=== PATIENT | male | born 1965 | race African-American/Black ===

== ENCOUNTER 2023-03-20 14:52 | Inpatient (IN) | payer OTHER ==
[2023-03-20 15:31] VITALS: BMI 23.2
[2023-03-20] MEDS ORDERED: BENZONATATE 200 MG CAPSULE PO PRN (16:32)
[2023-03-20] MEDS ORDERED: guaiFENesin 600 MG TABLET.ER (FP) PO PRN (16:32)
[2023-03-20] MEDS ORDERED: POLYETHYLENE GLYCOL (HEALTHYLAX) 3350 17 GM PACKET PO PRN (16:32)
[2023-03-20] MEDS ORDERED: IBUPROFEN 400 MG TABLET (FP) PO PRN (16:32)
[2023-03-20] MEDS ORDERED: AMMONIUM LACTATE 12% LOTION 225 GM BOTTLE TP PRN (16:32)
[2023-03-20] MEDS ORDERED: COLLOIDAL OATMEAL 1 BAR EACH TP PRN (16:32)
[2023-03-20] MEDS ORDERED: NALOXONE HCL (KLOXXADO) 8 MG SPRAY NS PRN (16:32)
[2023-03-20] MEDS ORDERED: hydrOXYzine PAMOATE 25 MG CAPSULE (FP) PO PRN (16:32)
[2023-03-20] MEDS ORDERED: MAGNESIUM HYDROX 2400MG/30ML ORAL SUSPENSION 30 ML CUP PO PRN (16:32)
[2023-03-20] MEDS ORDERED: NICOTINE POLACRILEX 2 MG GUM BUC PRN (16:32)
[2023-03-20] MEDS ORDERED: NALOXONE HCL 0.4 MG/ML VIAL IM PRN (16:32)
[2023-03-20] MEDS ORDERED: BENZOCAINE/MENTHOL (CHLORASEPTIC ) LOZENGE MM PRN (16:32)
[2023-03-20] MEDS: THIAMINE HCL 100 MG TABLET (FP) PO SCH (21:22)
[2023-03-20] MEDS: BACLOFEN 10 MG TABLET (FP) PO PRN (21:22)
[2023-03-20] MEDS: BUDESONIDE/FORMETEROL FUMARATE 80/4.5 mcg INHALER IH SCH (21:23)
[2023-03-20] MEDS ORDERED: MELATONIN 5 MG TABLETS PO SCH (22:00)
[2023-03-20] MEDS ORDERED: traZODone HCL 100 MG TABLET (FP) PO ONE (22:00)
[2023-03-21] MEDS ORDERED: PATIENT'S OWN MEDICATION (NON-FORMULARY) (Losartan/Hydrochlorothiazide [Losartan-Hctz 100- PO SCH (10:00)
[2023-03-21] MEDS: PRENATAL VITAMINS W/ FOLIC ACID TABLET (FP) PO SCH (10:23)
[2023-03-21] MEDS: LOSARTAN POTASSIUM 50 MG TABLET PO SCH (10:23)
[2023-03-21] MEDS: HYDROCHLOROTHIAZIDE 12.5 MG CAPSULE (FP) PO SCH (10:23)
[2023-03-21] MEDS: BUDESONIDE/FORMETEROL FUMARATE 80/4.5 mcg INHALER IH SCH ×2 (10:24→21:01)
[2023-03-21] MEDS: NICOTINE 14 MG/24 HOURS TOPICAL PATCH TD SCH (10:25)
[2023-03-21 12:00] LABS: POTASSIUM 3.7 mmol/L (3.5-5.1)
[2023-03-21 12:05] LABS: HEMATOCRIT 35.2 % (35.4-49); HEMOGLOBIN 12.2 GM/dL (11.7-16.9); MCH 29.2 pg (25.7-33.7); MCHC 34.6 g/dl (32.0-35.9); MEAN CELL VOLUME 84.3 fl (80-96); MEAN PLT VOLUME 9.2 fl (7.5-11.1); PLATELET COUNT 253 10^3/uL (134-434); RBC 4.18 M/mm3 (4.00-5.60); RDW 13.9 % (11.9-15.9); WHITE BLOOD COUNT 8.6 K/mm3 (4.0-10.0)
[2023-03-21 12:16] LABS: BLOOD UREA NITROGEN 13.9 mg/dL (7-18)
[2023-03-21 12:20] LABS: CREATININE 0.7 mg/dL (0.55-1.3)
[2023-03-21 12:21] LABS: BILIRUBIN,TOTAL 0.3 mg/dL (0.2-1)
[2023-03-21 12:22] LABS: TOT PROT 6.3 g/dl (6.4-8.2)
[2023-03-21] MEDS: THIAMINE HCL 100 MG TABLET (FP) PO SCH (21:00)
[2023-03-21] MEDS: traZODone HCL 100 MG TABLET (FP) PO SCH (21:00)
[2023-03-21] MEDS: risperiDONE 2 MG TABLET PO SCH (21:01)
[2023-03-22] MEDS: LOPERAMIDE HCL 2 MG CAPSULE PO PRN ×3 (06:18→20:36)
[2023-03-22] MEDS: MAG HYDROX/AL HYDROX/SIMETH 30 ML UNIT-DOSE CUP PO PRN ×3 (06:20→21:26)
[2023-03-22] MEDS: BUDESONIDE/FORMETEROL FUMARATE 80/4.5 mcg INHALER IH SCH ×2 (09:42→21:25)
[2023-03-22] MEDS: PRENATAL VITAMINS W/ FOLIC ACID TABLET (FP) PO SCH (09:43)
[2023-03-22] MEDS: LOSARTAN POTASSIUM 50 MG TABLET PO SCH (09:43)
[2023-03-22] MEDS: HYDROCHLOROTHIAZIDE 12.5 MG CAPSULE (FP) PO SCH (09:43)
[2023-03-22] MEDS: NICOTINE 14 MG/24 HOURS TOPICAL PATCH TD SCH (09:44)
[2023-03-22] MEDS: BACLOFEN 10 MG TABLET (FP) PO PRN (09:46)
[2023-03-22] MEDS: ONDANSETRON *ODT* 4 MG TABLET SL PRN (17:06)
[2023-03-22 17:41] LABS: PH,URINE >= 9.0 (5.0-8.0); URINE APPEARANCE CLEAR; URINE BILIRUBIN NEGATIVE (NEGATIVE); URINE COLOR YELLOW; URINE GLUCOSE (UA) NEGATIVE (NEGATIVE); URINE KETONE NEGATIVE (NEGATIVE); URINE LEUK ESTERASE NEGATIVE (NEGATIVE); URINE NITRITE NEGATIVE (NEGATIVE); URINE PROTEIN NEGATIVE (NEGATIVE); URINE UROBILINOGEN 0.2 mg/dL (0.2-1.0)
[2023-03-22] MEDS: risperiDONE 2 MG TABLET PO SCH (21:25)
[2023-03-22] MEDS: traZODone HCL 100 MG TABLET (FP) PO SCH (21:25)
[2023-03-22] MEDS: THIAMINE HCL 100 MG TABLET (FP) PO SCH (21:26)
[2023-03-23] MEDS: LOPERAMIDE HCL 2 MG CAPSULE PO PRN (06:06)
[2023-03-23] MEDS: ONDANSETRON *ODT* 4 MG TABLET SL PRN (06:07)
[2023-03-23] MEDS: LOSARTAN POTASSIUM 50 MG TABLET PO SCH (10:19)
[2023-03-23] MEDS: BUDESONIDE/FORMETEROL FUMARATE 80/4.5 mcg INHALER IH SCH ×2 (10:19→21:29)
[2023-03-23] MEDS: HYDROCHLOROTHIAZIDE 12.5 MG CAPSULE (FP) PO SCH (10:19)
[2023-03-23] MEDS: PRENATAL VITAMINS W/ FOLIC ACID TABLET (FP) PO SCH (10:20)
[2023-03-23] MEDS: NICOTINE 14 MG/24 HOURS TOPICAL PATCH TD SCH (10:20)
[2023-03-23] MEDS: BACLOFEN 10 MG TABLET (FP) PO PRN ×2 (10:20→21:28)
[2023-03-23] MEDS: BISMUTH SUBSALICYLATE 262 MG/15 ML BTL PO PRN ×2 (11:08→21:29)
[2023-03-23] MEDS: THIAMINE HCL 100 MG TABLET (FP) PO SCH (21:28)
[2023-03-23] MEDS: traZODone HCL 100 MG TABLET (FP) PO SCH (21:28)
[2023-03-23] MEDS: risperiDONE 2 MG TABLET PO SCH (21:28)
[2023-03-24] MEDS: BISMUTH SUBSALICYLATE 262 MG/15 ML BTL PO PRN ×2 (06:31→21:51)
[2023-03-24] MEDS: NICOTINE 14 MG/24 HOURS TOPICAL PATCH TD SCH (09:31)
[2023-03-24] MEDS: PRENATAL VITAMINS W/ FOLIC ACID TABLET (FP) PO SCH (09:31)
[2023-03-24] MEDS: LOSARTAN POTASSIUM 50 MG TABLET PO SCH (09:32)
[2023-03-24] MEDS: BUDESONIDE/FORMETEROL FUMARATE 80/4.5 mcg INHALER IH SCH ×2 (09:32→21:49)
[2023-03-24] MEDS: HYDROCHLOROTHIAZIDE 12.5 MG CAPSULE (FP) PO SCH (09:32)
[2023-03-24] MEDS: MAG HYDROX/AL HYDROX/SIMETH 30 ML UNIT-DOSE CUP PO PRN (09:33)
[2023-03-24] MEDS: BACLOFEN 10 MG TABLET (FP) PO PRN ×2 (09:34→21:50)
[2023-03-24] MEDS: risperiDONE 2 MG TABLET PO SCH (21:48)
[2023-03-24] MEDS: traZODone HCL 100 MG TABLET (FP) PO SCH (21:49)
[2023-03-24] MEDS: THIAMINE HCL 100 MG TABLET (FP) PO SCH (21:49)
[2023-03-25] MEDS: HYDROCHLOROTHIAZIDE 12.5 MG CAPSULE (FP) PO SCH (10:46)
[2023-03-25] MEDS: LOSARTAN POTASSIUM 50 MG TABLET PO SCH (10:46)
[2023-03-25] MEDS: PRENATAL VITAMINS W/ FOLIC ACID TABLET (FP) PO SCH (10:47)
[2023-03-25] MEDS: BUDESONIDE/FORMETEROL FUMARATE 80/4.5 mcg INHALER IH SCH ×2 (10:47→21:04)
[2023-03-25] MEDS: NICOTINE 14 MG/24 HOURS TOPICAL PATCH TD SCH (10:47)
[2023-03-25] MEDS: BACLOFEN 10 MG TABLET (FP) PO PRN (10:48)
[2023-03-25] MEDS: risperiDONE 2 MG TABLET PO SCH (21:02)
[2023-03-25] MEDS: THIAMINE HCL 100 MG TABLET (FP) PO SCH (21:02)
[2023-03-25] MEDS: traZODone HCL 100 MG TABLET (FP) PO SCH (21:02)
[2023-03-25] MEDS: BISMUTH SUBSALICYLATE 262 MG/15 ML BTL PO PRN (21:03)
[2023-03-26] MEDS: LOSARTAN POTASSIUM 50 MG TABLET PO SCH (10:00)
[2023-03-26] MEDS: BUDESONIDE/FORMETEROL FUMARATE 80/4.5 mcg INHALER IH SCH ×2 (10:02→21:36)
[2023-03-26] MEDS: HYDROCHLOROTHIAZIDE 12.5 MG CAPSULE (FP) PO SCH (10:03)
[2023-03-26] MEDS: PRENATAL VITAMINS W/ FOLIC ACID TABLET (FP) PO SCH (10:03)
[2023-03-26] MEDS: NICOTINE 14 MG/24 HOURS TOPICAL PATCH TD SCH (11:44)
[2023-03-26] MEDS: ACETAMINOPHEN 325 MG TABLET (FP) PO PRN (17:37)
[2023-03-26] MEDS: BACLOFEN 10 MG TABLET (FP) PO PRN (21:36)
[2023-03-26] MEDS: THIAMINE HCL 100 MG TABLET (FP) PO SCH (21:36)
[2023-03-26] MEDS: risperiDONE 2 MG TABLET PO SCH (21:37)
[2023-03-26] MEDS: traZODone HCL 100 MG TABLET (FP) PO SCH (21:37)
[2023-03-27] MEDS: BISMUTH SUBSALICYLATE 262 MG/15 ML BTL PO PRN ×2 (07:53→22:07)
[2023-03-27] MEDS ORDERED: AZITHROMYCIN 250 MG TABLET PO ONE (10:30)
[2023-03-27] MEDS: PRENATAL VITAMINS W/ FOLIC ACID TABLET (FP) PO SCH (10:46)
[2023-03-27] MEDS: HYDROCHLOROTHIAZIDE 12.5 MG CAPSULE (FP) PO SCH (10:46)
[2023-03-27] MEDS: NICOTINE 14 MG/24 HOURS TOPICAL PATCH TD SCH (10:46)
[2023-03-27] MEDS: BUDESONIDE/FORMETEROL FUMARATE 80/4.5 mcg INHALER IH SCH ×2 (10:46→22:06)
[2023-03-27] MEDS: LOSARTAN POTASSIUM 50 MG TABLET PO SCH (10:46)
[2023-03-27] MEDS: traZODone HCL 100 MG TABLET (FP) PO SCH (22:03)
[2023-03-27] MEDS: risperiDONE 2 MG TABLET PO SCH (22:03)
[2023-03-27] MEDS: THIAMINE HCL 100 MG TABLET (FP) PO SCH (22:03)
[2023-03-27] MEDS: BACLOFEN 10 MG TABLET (FP) PO PRN (22:06)
[2023-03-28] MEDS: HYDROCHLOROTHIAZIDE 12.5 MG CAPSULE (FP) PO SCH (09:33)
[2023-03-28] MEDS: PRENATAL VITAMINS W/ FOLIC ACID TABLET (FP) PO SCH (09:33)
[2023-03-28] MEDS: LOSARTAN POTASSIUM 50 MG TABLET PO SCH (09:33)
[2023-03-28] MEDS: BUDESONIDE/FORMETEROL FUMARATE 80/4.5 mcg INHALER IH SCH ×2 (09:33→21:12)
[2023-03-28] MEDS: NICOTINE 14 MG/24 HOURS TOPICAL PATCH TD SCH (09:34)
[2023-03-28] MEDS: AZITHROMYCIN 250 MG TABLET PO SCH (10:28)
[2023-03-28] MEDS: ACETAMINOPHEN 325 MG TABLET (FP) PO PRN (20:01)
[2023-03-28] MEDS: risperiDONE 2 MG TABLET PO SCH (21:10)
[2023-03-28] MEDS: traZODone HCL 100 MG TABLET (FP) PO SCH (21:10)
[2023-03-28] MEDS: THIAMINE HCL 100 MG TABLET (FP) PO SCH (21:10)
[2023-03-28] MEDS: BACLOFEN 10 MG TABLET (FP) PO PRN (21:11)
[2023-03-28] MEDS: BISMUTH SUBSALICYLATE 262 MG/15 ML BTL PO PRN (21:12)
[2023-03-29] MEDS: PRENATAL VITAMINS W/ FOLIC ACID TABLET (FP) PO SCH (10:27)
[2023-03-29] MEDS: BUDESONIDE/FORMETEROL FUMARATE 80/4.5 mcg INHALER IH SCH ×2 (10:27→21:39)
[2023-03-29] MEDS: NICOTINE 14 MG/24 HOURS TOPICAL PATCH TD SCH (10:27)
[2023-03-29] MEDS: AZITHROMYCIN 250 MG TABLET PO SCH (10:27)
[2023-03-29] MEDS: HYDROCHLOROTHIAZIDE 12.5 MG CAPSULE (FP) PO SCH (10:27)
[2023-03-29] MEDS: LOSARTAN POTASSIUM 50 MG TABLET PO SCH (10:27)
[2023-03-29] MEDS: ACETAMINOPHEN 325 MG TABLET (FP) PO PRN (10:29)
[2023-03-29] MEDS: BACLOFEN 10 MG TABLET (FP) PO PRN ×2 (10:29→21:38)
[2023-03-29] MEDS: IBUPROFEN 600 MG TABLET (FP) PO PRN (12:36)
[2023-03-29] MEDS: THIAMINE HCL 100 MG TABLET (FP) PO SCH (21:38)
[2023-03-29] MEDS: risperiDONE 2 MG TABLET PO SCH (21:38)
[2023-03-29] MEDS: traZODone HCL 100 MG TABLET (FP) PO SCH (21:38)
[2023-03-30] MEDS: PRENATAL VITAMINS W/ FOLIC ACID TABLET (FP) PO SCH (09:51)
[2023-03-30] MEDS: LOSARTAN POTASSIUM 50 MG TABLET PO SCH (09:51)
[2023-03-30] MEDS: BUDESONIDE/FORMETEROL FUMARATE 80/4.5 mcg INHALER IH SCH ×2 (09:51→21:11)
[2023-03-30] MEDS: HYDROCHLOROTHIAZIDE 12.5 MG CAPSULE (FP) PO SCH (09:51)
[2023-03-30] MEDS: AZITHROMYCIN 250 MG TABLET PO SCH (09:52)
[2023-03-30] MEDS: NICOTINE 14 MG/24 HOURS TOPICAL PATCH TD SCH (09:52)
[2023-03-30] MEDS: ACETAMINOPHEN 325 MG TABLET (FP) PO PRN (14:59)
[2023-03-30] MEDS: IBUPROFEN 600 MG TABLET (FP) PO PRN (16:53)
[2023-03-30] MEDS: THIAMINE HCL 100 MG TABLET (FP) PO SCH (21:10)
[2023-03-30] MEDS: BACLOFEN 10 MG TABLET (FP) PO PRN (21:10)
[2023-03-30] MEDS: traZODone HCL 100 MG TABLET (FP) PO SCH (21:10)
[2023-03-30] MEDS: risperiDONE 2 MG TABLET PO SCH (21:10)
[2023-03-31] MEDS: PRENATAL VITAMINS W/ FOLIC ACID TABLET (FP) PO SCH (10:29)
[2023-03-31] MEDS: AZITHROMYCIN 250 MG TABLET PO SCH (10:30)
[2023-03-31] MEDS: LOSARTAN POTASSIUM 50 MG TABLET PO SCH (10:30)
[2023-03-31] MEDS: BACLOFEN 10 MG TABLET (FP) PO PRN ×2 (10:30→21:31)
[2023-03-31] MEDS: HYDROCHLOROTHIAZIDE 12.5 MG CAPSULE (FP) PO SCH (10:31)
[2023-03-31] MEDS: IBUPROFEN 600 MG TABLET (FP) PO PRN (10:31)
[2023-03-31] MEDS: NICOTINE 14 MG/24 HOURS TOPICAL PATCH TD SCH (10:32)
[2023-03-31] MEDS: BUDESONIDE/FORMETEROL FUMARATE 80/4.5 mcg INHALER IH SCH ×2 (10:32→21:32)
[2023-03-31] MEDS: traZODone HCL 100 MG TABLET (FP) PO SCH (21:31)
[2023-03-31] MEDS: risperiDONE 2 MG TABLET PO SCH (21:31)
[2023-03-31] MEDS: THIAMINE HCL 100 MG TABLET (FP) PO SCH (21:31)
[2023-04-01] MEDS: PRENATAL VITAMINS W/ FOLIC ACID TABLET (FP) PO SCH (10:16)
[2023-04-01] MEDS: HYDROCHLOROTHIAZIDE 12.5 MG CAPSULE (FP) PO SCH (10:16)
[2023-04-01] MEDS: LOSARTAN POTASSIUM 50 MG TABLET PO SCH (10:17)
[2023-04-01] MEDS: BUDESONIDE/FORMETEROL FUMARATE 80/4.5 mcg INHALER IH SCH ×2 (10:17→21:52)
[2023-04-01] MEDS: NICOTINE 14 MG/24 HOURS TOPICAL PATCH TD SCH (10:17)
[2023-04-01] MEDS: IBUPROFEN 600 MG TABLET (FP) PO PRN ×2 (10:18→17:31)
[2023-04-01] MEDS: BACLOFEN 10 MG TABLET (FP) PO PRN ×2 (10:18→21:52)
[2023-04-01] MEDS: THIAMINE HCL 100 MG TABLET (FP) PO SCH (21:51)
[2023-04-01] MEDS: risperiDONE 2 MG TABLET PO SCH (21:51)
[2023-04-01] MEDS: traZODone HCL 100 MG TABLET (FP) PO SCH (21:51)
[2023-04-02] MEDS: PRENATAL VITAMINS W/ FOLIC ACID TABLET (FP) PO SCH (09:31)
[2023-04-02] MEDS: HYDROCHLOROTHIAZIDE 12.5 MG CAPSULE (FP) PO SCH (09:31)
[2023-04-02] MEDS: LOSARTAN POTASSIUM 50 MG TABLET PO SCH (09:31)
[2023-04-02] MEDS: ACETAMINOPHEN 325 MG TABLET (FP) PO PRN ×2 (09:32→18:24)
[2023-04-02] MEDS: BACLOFEN 10 MG TABLET (FP) PO PRN ×2 (09:32→21:21)
[2023-04-02] MEDS: NICOTINE 14 MG/24 HOURS TOPICAL PATCH TD SCH (09:34)
[2023-04-02] MEDS: BUDESONIDE/FORMETEROL FUMARATE 80/4.5 mcg INHALER IH SCH ×2 (09:34→21:21)
[2023-04-02] MEDS: THIAMINE HCL 100 MG TABLET (FP) PO SCH (21:20)
[2023-04-02] MEDS: risperiDONE 2 MG TABLET PO SCH (21:20)
[2023-04-02] MEDS: traZODone HCL 100 MG TABLET (FP) PO SCH (21:20)
[2023-04-03] MEDS: NICOTINE 14 MG/24 HOURS TOPICAL PATCH TD SCH (10:28)
[2023-04-03] MEDS: PRENATAL VITAMINS W/ FOLIC ACID TABLET (FP) PO SCH (10:28)
[2023-04-03] MEDS: HYDROCHLOROTHIAZIDE 12.5 MG CAPSULE (FP) PO SCH (10:29)
[2023-04-03] MEDS: LOSARTAN POTASSIUM 50 MG TABLET PO SCH (10:29)
[2023-04-03] MEDS: BUDESONIDE/FORMETEROL FUMARATE 80/4.5 mcg INHALER IH SCH ×2 (10:29→21:28)
[2023-04-03] MEDS: BACLOFEN 10 MG TABLET (FP) PO PRN ×2 (10:30→21:28)
[2023-04-03] MEDS: ACETAMINOPHEN 325 MG TABLET (FP) PO PRN ×2 (10:30→14:50)
[2023-04-03] MEDS: traZODone HCL 100 MG TABLET (FP) PO SCH (21:28)
[2023-04-03] MEDS: THIAMINE HCL 100 MG TABLET (FP) PO SCH (21:28)
[2023-04-03] MEDS: risperiDONE 2 MG TABLET PO SCH (21:28)
[2023-04-04 07:07] VITALS: RESP 18; TEMP 98.7
[2023-04-04] MEDS: LOSARTAN POTASSIUM 50 MG TABLET PO SCH (09:22)
[2023-04-04] MEDS: PRENATAL VITAMINS W/ FOLIC ACID TABLET (FP) PO SCH (09:23)
[2023-04-04] MEDS: HYDROCHLOROTHIAZIDE 12.5 MG CAPSULE (FP) PO SCH (09:23)
[2023-04-04 09:24] VITALS: BP 140/80; PULSE 97
[2023-04-04] MEDS: NICOTINE 14 MG/24 HOURS TOPICAL PATCH TD SCH (09:24)
[2023-04-04] MEDS: BUDESONIDE/FORMETEROL FUMARATE 80/4.5 mcg INHALER IH SCH (09:24)
[2023-04-04] MEDS: BACLOFEN 10 MG TABLET (FP) PO PRN (09:26)
== END 2023-04-04 10:00 | disposition home or self-care (01) | DRG 895 ==
LOC: YASAS 14:52 → Y3W 16:38
PROVIDERS: ADMIT Allergy & Immunology; ATTEND Psychiatry & Neurology Pain Medicine
PROC: HZ42ZZZ Group Counseling for Substance Abuse Treatment, Cognitive-Behavioral (ICD-10-PCS; principal; 2023-03-20)
DX: F14.20 Cocaine dependence, uncomplicated (principal); G90.521 Complex regional pain syndrome I of right lower limb; F17.210 Nicotine dependence, cigarettes, uncomplicated; F39 Unspecified mood [affective] disorder; F25.9 Schizoaffective disorder, unspecified; F31.9 Bipolar disorder, unspecified; I10 Essential (primary) hypertension; K21.9 Gastro-esophageal reflux disease without esophagitis; E78.5 Hyperlipidemia, unspecified; J41.0 Simple chronic bronchitis; N40.0 Benign prostatic hyperplasia without lower urinary tract symptoms; R19.7 Diarrhea, unspecified; R76.11 Nonspecific reaction to tuberculin skin test without active tuberculosis; Z88.8 Allergy status to other drugs, medicaments and biological substances
CPT/HCPCS: 36415; 71045-TC-FY; 80053; 81003; 82962; 85027; 86780; 87811; 93005; 93010; C9803-CS; J0475; Q0162; U0003; U0005

== ENCOUNTER 2023-11-28 16:33 | Inpatient (IN) | payer OTHER ==
[2023-11-28 17:17] VITALS: BMI 21.4
[2023-11-28] MEDS ORDERED: NALOXONE HCL 0.4 MG/ML VIAL IM PRN (17:59)
[2023-11-28] MEDS ORDERED: NICOTINE POLACRILEX 2 MG GUM BUC PRN (17:59)
[2023-11-28] MEDS ORDERED: guaiFENesin 600 MG TABLET.ER (FP) PO PRN (17:59)
[2023-11-28] MEDS ORDERED: NALOXONE HCL (KLOXXADO) 8 MG SPRAY NS PRN (17:59)
[2023-11-28] MEDS ORDERED: MAGNESIUM HYDROX 2400MG/30ML ORAL SUSPENSION 30 ML CUP PO PRN (17:59)
[2023-11-28] MEDS ORDERED: LOPERAMIDE HCL 2 MG CAPSULE PO PRN (17:59)
[2023-11-28] MEDS ORDERED: hydrOXYzine PAMOATE 25 MG CAPSULE (FP) PO PRN (17:59)
[2023-11-28] MEDS ORDERED: BENZONATATE 200 MG CAPSULE PO PRN (17:59)
[2023-11-28] MEDS ORDERED: IBUPROFEN 400 MG TABLET (FP) PO PRN (17:59)
[2023-11-28] MEDS ORDERED: POLYETHYLENE GLYCOL (HEALTHYLAX) 3350 17 GM PACKET PO PRN (17:59)
[2023-11-28] MEDS: THIAMINE HCL 100 MG TABLET (FP) PO SCH (21:56)
[2023-11-28] MEDS: GABAPENTIN 300 MG CAPSULE PO SCH (21:56)
[2023-11-28] MEDS: BUDESONIDE/FORMETEROL FUMARATE 80/4.5 mcg INHALER IH SCH (21:56)
[2023-11-28] MEDS ORDERED: MELATONIN 5 MG TABLETS PO SCH (22:00)
[2023-11-28] MEDS: FINASTERIDE 5 MG TABLET (FP) PO SCH (22:42)
[2023-11-29] MEDS: GABAPENTIN 300 MG CAPSULE PO SCH ×3 (06:05→21:07)
[2023-11-29] MEDS: BUDESONIDE/FORMETEROL FUMARATE 80/4.5 mcg INHALER IH SCH ×2 (10:23→21:08)
[2023-11-29] MEDS: LOSARTAN POTASSIUM 50 MG TABLET PO SCH (10:23)
[2023-11-29] MEDS: PRENATAL VITAMINS W/ FOLIC ACID TABLET (FP) PO SCH (10:24)
[2023-11-29] MEDS: CHOLECALCIFEROL (VIT D3) 1,000 UNIT (25 MCG) TABLET PO SCH (10:24)
[2023-11-29] MEDS: HYDROCHLOROTHIAZIDE 12.5 MG CAPSULE (FP) PO SCH (10:24)
[2023-11-29] MEDS: ASPIRIN 81 MG CHEWABLE TABLETS PO SCH (10:27)
[2023-11-29] MEDS: CYANOCOBALAMIN 1,000 MCG TABLET (FP) PO SCH (10:38)
[2023-11-29 11:36] LABS: URINE APPEARANCE CLEAR; URINE BILIRUBIN NEGATIVE (NEGATIVE); URINE COLOR YELLOW; URINE GLUCOSE (UA) NEGATIVE (NEGATIVE); URINE KETONE NEGATIVE (NEGATIVE); URINE LEUK ESTERASE NEGATIVE (NEGATIVE); URINE NITRITE NEGATIVE (NEGATIVE); URINE PROTEIN NEGATIVE (NEGATIVE); URINE UROBILINOGEN 0.2 mg/dL (0.2-1.0)
[2023-11-29 11:41] LABS: CHLORIDE 106 mmol/L (98-107); POTASSIUM 4.1 mmol/L (3.5-5.1); SODIUM 137 mmol/L (136-145)
[2023-11-29 11:45] LABS: ALBUMIN 3.5 g/dl (3.4-5.0); ANION GAP 4 mmol/L (4-13); BLOOD UREA NITROGEN 15.1 mg/dL (7-18); CALCIUM 9.2 mg/dL (8.5-10.1); CO2 27 mmol/L (21-32)
[2023-11-29 11:49] LABS: BILIRUBIN,TOTAL 0.2 mg/dL (0.2-1); CREATININE 0.7 mg/dL (0.55-1.3); GLUCOSE,RANDOM 92 mg/dL (74-106); SGOT/AST 16 U/L (15-37); SGPT/ALT 28 U/L (13-61)
[2023-11-29 11:51] LABS: ALK PHOS 96 U/L (45-117)
[2023-11-29] MEDS: PARoxetine HCL 20 MG TABLET PO SCH (12:19)
[2023-11-29 12:25] LABS: HEMATOCRIT 44.8 % (35.4-49); HEMOGLOBIN 14.6 GM/dL (11.7-16.9); MCH 28.5 pg (25.7-33.7); MCHC 32.5 g/dl (32.0-35.9); MEAN CELL VOLUME 87.7 fl (80-96); MEAN PLT VOLUME 8.7 fl (7.5-11.1); PLATELET COUNT 311 10^3/uL (134-434); RBC 5.11 M/mm3 (4.00-5.60); RDW 14.7 % (11.9-15.9); WHITE BLOOD COUNT 8.6 K/mm3 (4.0-10.0)
[2023-11-29] MEDS: risperiDONE 2 MG TABLET PO SCH ×2 (12:30→21:07)
[2023-11-29] MEDS: traZODone HCL 100 MG TABLET (FP) PO SCH (21:06)
[2023-11-29] MEDS: THIAMINE HCL 100 MG TABLET (FP) PO SCH (21:07)
[2023-11-29] MEDS: BACLOFEN 10 MG TABLET (FP) PO PRN (21:13)
[2023-11-30] MEDS: GABAPENTIN 300 MG CAPSULE PO SCH ×3 (06:31→21:05)
[2023-11-30] MEDS: CHOLECALCIFEROL (VIT D3) 1,000 UNIT (25 MCG) TABLET PO SCH (10:23)
[2023-11-30] MEDS: BUDESONIDE/FORMETEROL FUMARATE 80/4.5 mcg INHALER IH SCH ×2 (10:23→21:07)
[2023-11-30] MEDS: CYANOCOBALAMIN 1,000 MCG TABLET (FP) PO SCH (10:24)
[2023-11-30] MEDS: risperiDONE 2 MG TABLET PO SCH ×2 (10:24→21:06)
[2023-11-30] MEDS: ASPIRIN 81 MG CHEWABLE TABLETS PO SCH (10:24)
[2023-11-30] MEDS: HYDROCHLOROTHIAZIDE 12.5 MG CAPSULE (FP) PO SCH (10:24)
[2023-11-30] MEDS: PARoxetine HCL 20 MG TABLET PO SCH (10:24)
[2023-11-30] MEDS: LOSARTAN POTASSIUM 50 MG TABLET PO SCH (10:24)
[2023-11-30] MEDS: PRENATAL VITAMINS W/ FOLIC ACID TABLET (FP) PO SCH (10:24)
[2023-11-30] MEDS: BACLOFEN 10 MG TABLET (FP) PO PRN (11:46)
[2023-11-30] MEDS: FINASTERIDE 5 MG TABLET (FP) PO SCH ×2 (12:01→21:06)
[2023-11-30] MEDS: BACLOFEN 10 MG TABLET (FP) PO SCH ×2 (14:48→21:06)
[2023-11-30] MEDS: traZODone HCL 100 MG TABLET (FP) PO SCH (21:05)
[2023-11-30] MEDS: THIAMINE HCL 100 MG TABLET (FP) PO SCH (21:06)
[2023-11-30] MEDS: MAG HYDROX/AL HYDROX/SIMETH 30 ML UNIT-DOSE CUP PO PRN (21:06)
[2023-12-01] MEDS: GABAPENTIN 300 MG CAPSULE PO SCH ×3 (06:46→21:33)
[2023-12-01] MEDS: BACLOFEN 10 MG TABLET (FP) PO SCH ×3 (06:46→21:33)
[2023-12-01] MEDS: CHOLECALCIFEROL (VIT D3) 1,000 UNIT (25 MCG) TABLET PO SCH (09:56)
[2023-12-01] MEDS: PARoxetine HCL 20 MG TABLET PO SCH (09:56)
[2023-12-01] MEDS: LOSARTAN POTASSIUM 50 MG TABLET PO SCH (09:56)
[2023-12-01] MEDS: MAG HYDROX/AL HYDROX/SIMETH 30 ML UNIT-DOSE CUP PO PRN ×2 (09:56→17:22)
[2023-12-01] MEDS: ASPIRIN 81 MG CHEWABLE TABLETS PO SCH (09:56)
[2023-12-01] MEDS: BUDESONIDE/FORMETEROL FUMARATE 80/4.5 mcg INHALER IH SCH ×2 (09:56→21:32)
[2023-12-01] MEDS: HYDROCHLOROTHIAZIDE 12.5 MG CAPSULE (FP) PO SCH (09:56)
[2023-12-01] MEDS: risperiDONE 2 MG TABLET PO SCH ×2 (09:57→21:33)
[2023-12-01] MEDS: CYANOCOBALAMIN 1,000 MCG TABLET (FP) PO SCH (09:57)
[2023-12-01] MEDS: PRENATAL VITAMINS W/ FOLIC ACID TABLET (FP) PO SCH (09:57)
[2023-12-01] MEDS: THIAMINE HCL 100 MG TABLET (FP) PO SCH (21:33)
[2023-12-01] MEDS: FINASTERIDE 5 MG TABLET (FP) PO SCH (21:33)
[2023-12-01] MEDS: traZODone HCL 100 MG TABLET (FP) PO SCH (21:33)
[2023-12-02] MEDS: BACLOFEN 10 MG TABLET (FP) PO SCH ×3 (06:31→21:25)
[2023-12-02] MEDS: GABAPENTIN 300 MG CAPSULE PO SCH ×3 (06:31→21:25)
[2023-12-02] MEDS: PRENATAL VITAMINS W/ FOLIC ACID TABLET (FP) PO SCH (09:54)
[2023-12-02] MEDS: LOSARTAN POTASSIUM 50 MG TABLET PO SCH (09:55)
[2023-12-02] MEDS: CHOLECALCIFEROL (VIT D3) 1,000 UNIT (25 MCG) TABLET PO SCH (09:55)
[2023-12-02] MEDS: HYDROCHLOROTHIAZIDE 12.5 MG CAPSULE (FP) PO SCH (09:55)
[2023-12-02] MEDS: ASPIRIN 81 MG CHEWABLE TABLETS PO SCH (09:55)
[2023-12-02] MEDS: BUDESONIDE/FORMETEROL FUMARATE 80/4.5 mcg INHALER IH SCH ×2 (09:55→21:24)
[2023-12-02] MEDS: PARoxetine HCL 20 MG TABLET PO SCH (09:55)
[2023-12-02] MEDS: risperiDONE 2 MG TABLET PO SCH ×2 (09:56→21:25)
[2023-12-02] MEDS: CYANOCOBALAMIN 1,000 MCG TABLET (FP) PO SCH (09:56)
[2023-12-02] MEDS: traZODone HCL 100 MG TABLET (FP) PO SCH (21:24)
[2023-12-02] MEDS: MAG HYDROX/AL HYDROX/SIMETH 30 ML UNIT-DOSE CUP PO PRN (21:24)
[2023-12-02] MEDS: THIAMINE HCL 100 MG TABLET (FP) PO SCH (21:24)
[2023-12-02] MEDS: FINASTERIDE 5 MG TABLET (FP) PO SCH (22:03)
[2023-12-03] MEDS: GABAPENTIN 300 MG CAPSULE PO SCH ×3 (06:36→21:28)
[2023-12-03] MEDS: BACLOFEN 10 MG TABLET (FP) PO SCH ×3 (06:36→21:28)
[2023-12-03] MEDS: PRENATAL VITAMINS W/ FOLIC ACID TABLET (FP) PO SCH (09:46)
[2023-12-03] MEDS: BUDESONIDE/FORMETEROL FUMARATE 80/4.5 mcg INHALER IH SCH ×2 (09:46→21:29)
[2023-12-03] MEDS: LOSARTAN POTASSIUM 50 MG TABLET PO SCH (09:47)
[2023-12-03] MEDS: PARoxetine HCL 20 MG TABLET PO SCH (09:47)
[2023-12-03] MEDS: CHOLECALCIFEROL (VIT D3) 1,000 UNIT (25 MCG) TABLET PO SCH (09:47)
[2023-12-03] MEDS: risperiDONE 2 MG TABLET PO SCH ×2 (09:48→21:29)
[2023-12-03] MEDS: CYANOCOBALAMIN 1,000 MCG TABLET (FP) PO SCH (09:48)
[2023-12-03] MEDS: ASPIRIN 81 MG CHEWABLE TABLETS PO SCH (09:48)
[2023-12-03] MEDS: HYDROCHLOROTHIAZIDE 12.5 MG CAPSULE (FP) PO SCH (09:48)
[2023-12-03] MEDS: MAG HYDROX/AL HYDROX/SIMETH 30 ML UNIT-DOSE CUP PO PRN ×2 (09:50→21:30)
[2023-12-03] MEDS: THIAMINE HCL 100 MG TABLET (FP) PO SCH (21:29)
[2023-12-03] MEDS: FINASTERIDE 5 MG TABLET (FP) PO SCH (21:29)
[2023-12-03] MEDS: traZODone HCL 100 MG TABLET (FP) PO SCH (21:29)
[2023-12-04] MEDS: GABAPENTIN 300 MG CAPSULE PO SCH ×3 (06:17→21:15)
[2023-12-04] MEDS: BACLOFEN 10 MG TABLET (FP) PO SCH ×3 (06:17→21:15)
[2023-12-04] MEDS: PRENATAL VITAMINS W/ FOLIC ACID TABLET (FP) PO SCH (09:51)
[2023-12-04] MEDS: BUDESONIDE/FORMETEROL FUMARATE 80/4.5 mcg INHALER IH SCH ×2 (09:51→21:15)
[2023-12-04] MEDS: ASPIRIN 81 MG CHEWABLE TABLETS PO SCH (09:52)
[2023-12-04] MEDS: risperiDONE 2 MG TABLET PO SCH ×2 (09:52→21:15)
[2023-12-04] MEDS: PARoxetine HCL 20 MG TABLET PO SCH (09:52)
[2023-12-04] MEDS: HYDROCHLOROTHIAZIDE 12.5 MG CAPSULE (FP) PO SCH (09:52)
[2023-12-04] MEDS: CHOLECALCIFEROL (VIT D3) 1,000 UNIT (25 MCG) TABLET PO SCH (09:52)
[2023-12-04] MEDS: LOSARTAN POTASSIUM 50 MG TABLET PO SCH (09:52)
[2023-12-04] MEDS: CYANOCOBALAMIN 1,000 MCG TABLET (FP) PO SCH (09:53)
[2023-12-04] MEDS: MAG HYDROX/AL HYDROX/SIMETH 30 ML UNIT-DOSE CUP PO PRN (09:53)
[2023-12-04] MEDS: ACETAMINOPHEN 325 MG TABLET (FP) PO PRN (15:50)
[2023-12-04] MEDS: THIAMINE HCL 100 MG TABLET (FP) PO SCH (21:15)
[2023-12-04] MEDS: SIMETHICONE 80 MG TAB.CHEW (FP) PO PRN (21:16)
[2023-12-04] MEDS: traZODone HCL 100 MG TABLET (FP) PO SCH (22:00)
[2023-12-05] MEDS: GABAPENTIN 300 MG CAPSULE PO SCH ×3 (06:34→21:25)
[2023-12-05] MEDS: BACLOFEN 10 MG TABLET (FP) PO SCH ×3 (06:34→21:26)
[2023-12-05] MEDS: LOSARTAN POTASSIUM 50 MG TABLET PO SCH (09:48)
[2023-12-05] MEDS: BUDESONIDE/FORMETEROL FUMARATE 80/4.5 mcg INHALER IH SCH ×2 (09:48→21:26)
[2023-12-05] MEDS: PARoxetine HCL 20 MG TABLET PO SCH (09:48)
[2023-12-05] MEDS: ASPIRIN 81 MG CHEWABLE TABLETS PO SCH (09:48)
[2023-12-05] MEDS: CYANOCOBALAMIN 1,000 MCG TABLET (FP) PO SCH (09:48)
[2023-12-05] MEDS: PRENATAL VITAMINS W/ FOLIC ACID TABLET (FP) PO SCH (09:48)
[2023-12-05] MEDS: HYDROCHLOROTHIAZIDE 12.5 MG CAPSULE (FP) PO SCH (09:48)
[2023-12-05] MEDS: CHOLECALCIFEROL (VIT D3) 1,000 UNIT (25 MCG) TABLET PO SCH (09:48)
[2023-12-05] MEDS: risperiDONE 2 MG TABLET PO SCH ×2 (09:49→21:26)
[2023-12-05] MEDS: IBUPROFEN 600 MG TABLET (FP) PO PRN (12:15)
[2023-12-05] MEDS: SIMETHICONE 80 MG TAB.CHEW (FP) PO PRN ×2 (17:30→21:25)
[2023-12-05] MEDS: FINASTERIDE 5 MG TABLET (FP) PO SCH ×2 (17:41→21:26)
[2023-12-05] MEDS: traZODone HCL 100 MG TABLET (FP) PO SCH (21:26)
[2023-12-05] MEDS: THIAMINE HCL 100 MG TABLET (FP) PO SCH (21:27)
[2023-12-06] MEDS: BACLOFEN 10 MG TABLET (FP) PO SCH ×3 (06:33→21:23)
[2023-12-06] MEDS: GABAPENTIN 300 MG CAPSULE PO SCH ×3 (06:33→21:20)
[2023-12-06 07:51] VITALS: RESP 18
[2023-12-06] MEDS: LOSARTAN POTASSIUM 50 MG TABLET PO SCH (09:57)
[2023-12-06] MEDS: HYDROCHLOROTHIAZIDE 12.5 MG CAPSULE (FP) PO SCH (09:57)
[2023-12-06] MEDS: ASPIRIN 81 MG CHEWABLE TABLETS PO SCH (09:57)
[2023-12-06] MEDS: BUDESONIDE/FORMETEROL FUMARATE 80/4.5 mcg INHALER IH SCH ×2 (09:57→21:24)
[2023-12-06] MEDS: CYANOCOBALAMIN 1,000 MCG TABLET (FP) PO SCH (09:57)
[2023-12-06] MEDS: PRENATAL VITAMINS W/ FOLIC ACID TABLET (FP) PO SCH (09:57)
[2023-12-06] MEDS: risperiDONE 2 MG TABLET PO SCH ×2 (09:58→21:23)
[2023-12-06] MEDS: PARoxetine HCL 20 MG TABLET PO SCH (09:58)
[2023-12-06] MEDS: CHOLECALCIFEROL (VIT D3) 1,000 UNIT (25 MCG) TABLET PO SCH (09:58)
[2023-12-06] MEDS: SIMETHICONE 80 MG TAB.CHEW (FP) PO PRN ×2 (10:01→21:27)
[2023-12-06] MEDS: ACETAMINOPHEN 325 MG TABLET (FP) PO PRN (18:46)
[2023-12-06] MEDS: traZODone HCL 100 MG TABLET (FP) PO SCH (21:23)
[2023-12-06] MEDS: THIAMINE HCL 100 MG TABLET (FP) PO SCH (21:23)
[2023-12-06] MEDS: FINASTERIDE 5 MG TABLET (FP) PO SCH (21:24)
[2023-12-07] MEDS: GABAPENTIN 300 MG CAPSULE PO SCH ×3 (06:51→21:24)
[2023-12-07] MEDS: BACLOFEN 10 MG TABLET (FP) PO SCH ×3 (06:51→21:25)
[2023-12-07] MEDS: ASPIRIN 81 MG CHEWABLE TABLETS PO SCH (09:57)
[2023-12-07] MEDS: BUDESONIDE/FORMETEROL FUMARATE 80/4.5 mcg INHALER IH SCH ×2 (09:57→21:25)
[2023-12-07] MEDS: PRENATAL VITAMINS W/ FOLIC ACID TABLET (FP) PO SCH (09:57)
[2023-12-07] MEDS: CHOLECALCIFEROL (VIT D3) 1,000 UNIT (25 MCG) TABLET PO SCH (09:57)
[2023-12-07] MEDS: risperiDONE 2 MG TABLET PO SCH ×2 (09:58→21:24)
[2023-12-07] MEDS: PARoxetine HCL 20 MG TABLET PO SCH (10:00)
[2023-12-07] MEDS: SIMETHICONE 80 MG TAB.CHEW (FP) PO PRN ×2 (10:02→21:27)
[2023-12-07] MEDS: HYDROCHLOROTHIAZIDE 12.5 MG CAPSULE (FP) PO SCH (11:00)
[2023-12-07] MEDS: CYANOCOBALAMIN 1,000 MCG TABLET (FP) PO SCH (11:15)
[2023-12-07] MEDS: LOSARTAN POTASSIUM 50 MG TABLET PO SCH (12:41)
[2023-12-07] MEDS: IBUPROFEN 600 MG TABLET (FP) PO PRN (17:21)
[2023-12-07] MEDS: FINASTERIDE 5 MG TABLET (FP) PO SCH (21:25)
[2023-12-07] MEDS: traZODone HCL 100 MG TABLET (FP) PO SCH (21:25)
[2023-12-07] MEDS: THIAMINE HCL 100 MG TABLET (FP) PO SCH (21:25)
[2023-12-08] MEDS: BACLOFEN 10 MG TABLET (FP) PO SCH ×3 (05:38→21:29)
[2023-12-08] MEDS: GABAPENTIN 300 MG CAPSULE PO SCH ×3 (05:38→21:29)
[2023-12-08] MEDS: PRENATAL VITAMINS W/ FOLIC ACID TABLET (FP) PO SCH (10:00)
[2023-12-08] MEDS: ASPIRIN 81 MG CHEWABLE TABLETS PO SCH (10:01)
[2023-12-08] MEDS: CHOLECALCIFEROL (VIT D3) 1,000 UNIT (25 MCG) TABLET PO SCH (10:01)
[2023-12-08] MEDS: BUDESONIDE/FORMETEROL FUMARATE 80/4.5 mcg INHALER IH SCH ×2 (10:01→21:29)
[2023-12-08] MEDS: HYDROCHLOROTHIAZIDE 12.5 MG CAPSULE (FP) PO SCH (10:01)
[2023-12-08] MEDS: LOSARTAN POTASSIUM 50 MG TABLET PO SCH (10:01)
[2023-12-08] MEDS: risperiDONE 2 MG TABLET PO SCH ×2 (10:02→21:29)
[2023-12-08] MEDS: CYANOCOBALAMIN 1,000 MCG TABLET (FP) PO SCH (10:03)
[2023-12-08] MEDS: PARoxetine HCL 20 MG TABLET PO SCH (10:04)
[2023-12-08] MEDS: SIMETHICONE 80 MG TAB.CHEW (FP) PO PRN (17:53)
[2023-12-08] MEDS: THIAMINE HCL 100 MG TABLET (FP) PO SCH (21:29)
[2023-12-08] MEDS: traZODone HCL 100 MG TABLET (FP) PO SCH (21:29)
[2023-12-08] MEDS: FINASTERIDE 5 MG TABLET (FP) PO SCH (21:29)
[2023-12-09] MEDS: BACLOFEN 10 MG TABLET (FP) PO SCH ×3 (06:55→21:13)
[2023-12-09] MEDS: GABAPENTIN 300 MG CAPSULE PO SCH ×3 (06:55→21:12)
[2023-12-09] MEDS: PRENATAL VITAMINS W/ FOLIC ACID TABLET (FP) PO SCH (10:16)
[2023-12-09] MEDS: ASPIRIN 81 MG CHEWABLE TABLETS PO SCH (10:17)
[2023-12-09] MEDS: risperiDONE 2 MG TABLET PO SCH ×2 (10:17→21:12)
[2023-12-09] MEDS: CYANOCOBALAMIN 1,000 MCG TABLET (FP) PO SCH (10:17)
[2023-12-09] MEDS: CHOLECALCIFEROL (VIT D3) 1,000 UNIT (25 MCG) TABLET PO SCH (10:17)
[2023-12-09] MEDS: BUDESONIDE/FORMETEROL FUMARATE 80/4.5 mcg INHALER IH SCH ×2 (10:17→21:12)
[2023-12-09] MEDS: LOSARTAN POTASSIUM 50 MG TABLET PO SCH (10:18)
[2023-12-09] MEDS: PARoxetine HCL 20 MG TABLET PO SCH (10:18)
[2023-12-09] MEDS: HYDROCHLOROTHIAZIDE 12.5 MG CAPSULE (FP) PO SCH (10:18)
[2023-12-09] MEDS: traZODone HCL 100 MG TABLET (FP) PO SCH (21:12)
[2023-12-09] MEDS: FINASTERIDE 5 MG TABLET (FP) PO SCH (21:14)
[2023-12-09] MEDS: THIAMINE HCL 100 MG TABLET (FP) PO SCH (21:15)
[2023-12-10] MEDS: BACLOFEN 10 MG TABLET (FP) PO SCH ×3 (07:00→21:16)
[2023-12-10] MEDS: GABAPENTIN 300 MG CAPSULE PO SCH ×3 (07:00→21:15)
[2023-12-10] MEDS: PRENATAL VITAMINS W/ FOLIC ACID TABLET (FP) PO SCH (09:37)
[2023-12-10] MEDS: CYANOCOBALAMIN 1,000 MCG TABLET (FP) PO SCH (09:37)
[2023-12-10] MEDS: CHOLECALCIFEROL (VIT D3) 1,000 UNIT (25 MCG) TABLET PO SCH (09:37)
[2023-12-10] MEDS: HYDROCHLOROTHIAZIDE 12.5 MG CAPSULE (FP) PO SCH (09:37)
[2023-12-10] MEDS: ASPIRIN 81 MG CHEWABLE TABLETS PO SCH (09:37)
[2023-12-10] MEDS: PARoxetine HCL 20 MG TABLET PO SCH (09:38)
[2023-12-10] MEDS: risperiDONE 2 MG TABLET PO SCH ×2 (09:38→21:16)
[2023-12-10] MEDS: LOSARTAN POTASSIUM 50 MG TABLET PO SCH (09:38)
[2023-12-10] MEDS: BUDESONIDE/FORMETEROL FUMARATE 80/4.5 mcg INHALER IH SCH ×2 (09:39→21:16)
[2023-12-10] MEDS: ACETAMINOPHEN 325 MG TABLET (FP) PO PRN (18:37)
[2023-12-10] MEDS: FINASTERIDE 5 MG TABLET (FP) PO SCH (21:15)
[2023-12-10] MEDS: traZODone HCL 100 MG TABLET (FP) PO SCH (21:16)
[2023-12-10] MEDS: THIAMINE HCL 100 MG TABLET (FP) PO SCH (21:17)
[2023-12-11] MEDS: GABAPENTIN 300 MG CAPSULE PO SCH ×3 (06:53→21:13)
[2023-12-11] MEDS: BACLOFEN 10 MG TABLET (FP) PO SCH ×3 (06:53→21:14)
[2023-12-11] MEDS: HYDROCHLOROTHIAZIDE 12.5 MG CAPSULE (FP) PO SCH (09:35)
[2023-12-11] MEDS: PARoxetine HCL 20 MG TABLET PO SCH (09:35)
[2023-12-11] MEDS: LOSARTAN POTASSIUM 50 MG TABLET PO SCH (09:35)
[2023-12-11] MEDS: PRENATAL VITAMINS W/ FOLIC ACID TABLET (FP) PO SCH (09:35)
[2023-12-11] MEDS: risperiDONE 2 MG TABLET PO SCH ×2 (09:36→21:16)
[2023-12-11] MEDS: ASPIRIN 81 MG CHEWABLE TABLETS PO SCH (09:36)
[2023-12-11] MEDS: CYANOCOBALAMIN 1,000 MCG TABLET (FP) PO SCH (09:36)
[2023-12-11] MEDS: BUDESONIDE/FORMETEROL FUMARATE 80/4.5 mcg INHALER IH SCH ×2 (09:38→21:16)
[2023-12-11] MEDS: CHOLECALCIFEROL (VIT D3) 1,000 UNIT (25 MCG) TABLET PO SCH (10:38)
[2023-12-11] MEDS: ACETAMINOPHEN 325 MG TABLET (FP) PO PRN (13:26)
[2023-12-11] MEDS: traZODone HCL 100 MG TABLET (FP) PO SCH (21:13)
[2023-12-11] MEDS: THIAMINE HCL 100 MG TABLET (FP) PO SCH (21:14)
[2023-12-11] MEDS: FINASTERIDE 5 MG TABLET (FP) PO SCH (21:14)
[2023-12-11] MEDS: SIMETHICONE 80 MG TAB.CHEW (FP) PO PRN (21:16)
[2023-12-12] MEDS: BACLOFEN 10 MG TABLET (FP) PO SCH ×3 (06:37→21:47)
[2023-12-12] MEDS: GABAPENTIN 300 MG CAPSULE PO SCH ×3 (06:38→21:46)
[2023-12-12] MEDS: PRENATAL VITAMINS W/ FOLIC ACID TABLET (FP) PO SCH (09:40)
[2023-12-12] MEDS: BUDESONIDE/FORMETEROL FUMARATE 80/4.5 mcg INHALER IH SCH ×2 (09:40→21:47)
[2023-12-12] MEDS: CYANOCOBALAMIN 1,000 MCG TABLET (FP) PO SCH (09:41)
[2023-12-12] MEDS: PARoxetine HCL 20 MG TABLET PO SCH (09:41)
[2023-12-12] MEDS: ASPIRIN 81 MG CHEWABLE TABLETS PO SCH (09:41)
[2023-12-12] MEDS: HYDROCHLOROTHIAZIDE 12.5 MG CAPSULE (FP) PO SCH (09:41)
[2023-12-12] MEDS: CHOLECALCIFEROL (VIT D3) 1,000 UNIT (25 MCG) TABLET PO SCH (09:41)
[2023-12-12] MEDS: risperiDONE 2 MG TABLET PO SCH ×2 (09:41→21:46)
[2023-12-12] MEDS: LOSARTAN POTASSIUM 50 MG TABLET PO SCH (09:41)
[2023-12-12] MEDS ORDERED: ALBUTEROL SO4 HFA INHALER IH ONE (12:43)
[2023-12-12] MEDS ORDERED: ALBUTEROL SO4 HFA INHALER IH PRN (12:48)
[2023-12-12] MEDS ORDERED: ALBUTEROL SO4 0.083% IH SOL 2.5 MG/3 ML VIAL.NEB. NEB PRN (12:49)
[2023-12-12] MEDS: BENZOCAINE/MENTHOL (CHLORASEPTIC ) LOZENGE MM PRN (14:06)
[2023-12-12] MEDS: ACETAMINOPHEN 325 MG TABLET (FP) PO PRN (15:52)
[2023-12-12] MEDS: THIAMINE HCL 100 MG TABLET (FP) PO SCH (21:46)
[2023-12-12] MEDS: traZODone HCL 100 MG TABLET (FP) PO SCH (21:47)
[2023-12-12] MEDS: guaiFENesin 600 MG TABLET.ER (FP) PO SCH (21:47)
[2023-12-12] MEDS: SIMETHICONE 80 MG TAB.CHEW (FP) PO PRN (23:20)
[2023-12-12] MEDS: FINASTERIDE 5 MG TABLET (FP) PO SCH (23:20)
[2023-12-13] MEDS: GABAPENTIN 300 MG CAPSULE PO SCH ×3 (06:58→22:11)
[2023-12-13] MEDS: BACLOFEN 10 MG TABLET (FP) PO SCH ×3 (06:59→22:11)
[2023-12-13] MEDS: PARoxetine HCL 20 MG TABLET PO SCH (10:25)
[2023-12-13] MEDS: LOSARTAN POTASSIUM 50 MG TABLET PO SCH (10:25)
[2023-12-13] MEDS: CHOLECALCIFEROL (VIT D3) 1,000 UNIT (25 MCG) TABLET PO SCH (10:25)
[2023-12-13] MEDS: CYANOCOBALAMIN 1,000 MCG TABLET (FP) PO SCH (10:25)
[2023-12-13] MEDS: risperiDONE 2 MG TABLET PO SCH ×2 (10:25→22:11)
[2023-12-13] MEDS: BUDESONIDE/FORMETEROL FUMARATE 80/4.5 mcg INHALER IH SCH ×2 (10:26→22:13)
[2023-12-13] MEDS: guaiFENesin 600 MG TABLET.ER (FP) PO SCH ×2 (10:26→22:10)
[2023-12-13] MEDS: HYDROCHLOROTHIAZIDE 12.5 MG CAPSULE (FP) PO SCH (10:26)
[2023-12-13] MEDS: PRENATAL VITAMINS W/ FOLIC ACID TABLET (FP) PO SCH (10:26)
[2023-12-13] MEDS: ASPIRIN 81 MG CHEWABLE TABLETS PO SCH (10:26)
[2023-12-13] MEDS ORDERED: ARTIFICIAL TEARS OPHTHALMIC DROPS OU PRN (12:09)
[2023-12-13] MEDS ORDERED: BENZONATATE 200 MG CAPSULE PO PRN (12:10)
[2023-12-13] MEDS ORDERED: P-EPHED 60MG/TRIPROLIDI 2.5MG TABLET PO PRN (12:12)
[2023-12-13] MEDS: traZODone HCL 100 MG TABLET (FP) PO SCH (22:11)
[2023-12-13] MEDS: THIAMINE HCL 100 MG TABLET (FP) PO SCH (22:11)
[2023-12-13] MEDS: FINASTERIDE 5 MG TABLET (FP) PO SCH (22:12)
[2023-12-13] MEDS: BENZOCAINE/MENTHOL (CHLORASEPTIC ) LOZENGE MM PRN (22:37)
[2023-12-14] MEDS: GABAPENTIN 300 MG CAPSULE PO SCH ×3 (06:47→21:43)
[2023-12-14] MEDS: BACLOFEN 10 MG TABLET (FP) PO SCH ×3 (06:48→21:43)
[2023-12-14] MEDS: HYDROCHLOROTHIAZIDE 12.5 MG CAPSULE (FP) PO SCH (10:37)
[2023-12-14] MEDS: PARoxetine HCL 20 MG TABLET PO SCH (10:37)
[2023-12-14] MEDS: risperiDONE 2 MG TABLET PO SCH ×2 (10:37→21:43)
[2023-12-14] MEDS: CYANOCOBALAMIN 1,000 MCG TABLET (FP) PO SCH (10:38)
[2023-12-14] MEDS: LOSARTAN POTASSIUM 50 MG TABLET PO SCH (10:38)
[2023-12-14] MEDS: ASPIRIN 81 MG CHEWABLE TABLETS PO SCH (10:38)
[2023-12-14] MEDS: CHOLECALCIFEROL (VIT D3) 1,000 UNIT (25 MCG) TABLET PO SCH (10:38)
[2023-12-14] MEDS: guaiFENesin 600 MG TABLET.ER (FP) PO SCH ×2 (10:38→21:43)
[2023-12-14] MEDS: PRENATAL VITAMINS W/ FOLIC ACID TABLET (FP) PO SCH (10:39)
[2023-12-14] MEDS: BUDESONIDE/FORMETEROL FUMARATE 80/4.5 mcg INHALER IH SCH ×2 (10:39→21:43)
[2023-12-14] MEDS: FINASTERIDE 5 MG TABLET (FP) PO SCH (21:43)
[2023-12-14] MEDS: traZODone HCL 100 MG TABLET (FP) PO SCH (21:43)
[2023-12-14] MEDS: THIAMINE HCL 100 MG TABLET (FP) PO SCH (21:43)
[2023-12-15] MEDS: BACLOFEN 10 MG TABLET (FP) PO SCH (06:14)
[2023-12-15] MEDS: GABAPENTIN 300 MG CAPSULE PO SCH (06:14)
[2023-12-15] MEDS: CYANOCOBALAMIN 1,000 MCG TABLET (FP) PO SCH (10:05)
[2023-12-15] MEDS: SIMETHICONE 80 MG TAB.CHEW (FP) PO PRN (10:05)
[2023-12-15] MEDS: LOSARTAN POTASSIUM 50 MG TABLET PO SCH (10:05)
[2023-12-15] MEDS: PARoxetine HCL 20 MG TABLET PO SCH (10:05)
[2023-12-15] MEDS: BUDESONIDE/FORMETEROL FUMARATE 80/4.5 mcg INHALER IH SCH (10:05)
[2023-12-15] MEDS: HYDROCHLOROTHIAZIDE 12.5 MG CAPSULE (FP) PO SCH (10:05)
[2023-12-15] MEDS: guaiFENesin 600 MG TABLET.ER (FP) PO SCH (10:05)
[2023-12-15] MEDS: CHOLECALCIFEROL (VIT D3) 1,000 UNIT (25 MCG) TABLET PO SCH (10:05)
[2023-12-15] MEDS: PRENATAL VITAMINS W/ FOLIC ACID TABLET (FP) PO SCH (10:07)
[2023-12-15] MEDS: risperiDONE 2 MG TABLET PO SCH (10:07)
[2023-12-15] MEDS: ASPIRIN 81 MG CHEWABLE TABLETS PO SCH (10:07)
[2023-12-15 10:43] VITALS: BP 116/72; PULSE 94; TEMP 97
== END 2023-12-15 10:23 | disposition home or self-care (01) | DRG 895 ==
LOC: YASAS 16:33 → Y5N 21:13
PROVIDERS: ADMIT Allergy & Immunology; ATTEND Psychiatry & Neurology Pain Medicine
PROC: HZ42ZZZ Group Counseling for Substance Abuse Treatment, Cognitive-Behavioral (ICD-10-PCS; principal; 2023-11-28)
DX: F10.20 Alcohol dependence, uncomplicated (principal); U07.1 COVID-19; F14.20 Cocaine dependence, uncomplicated; F19.282 Other psychoactive substance dependence with psychoactive substance-induced sleep disorder; G90.521 Complex regional pain syndrome I of right lower limb; F17.210 Nicotine dependence, cigarettes, uncomplicated; F25.9 Schizoaffective disorder, unspecified; I10 Essential (primary) hypertension; K21.9 Gastro-esophageal reflux disease without esophagitis; J42 Unspecified chronic bronchitis; H04.123 Dry eye syndrome of bilateral lacrimal glands; Z86.59 Personal history of other mental and behavioral disorders
CPT/HCPCS: 0241U-QW; 36415; 71046-TC-FY; 80053; 80307; 81003; 85027; 86780; 87635; 87811; J0475